=== PATIENT | female | born 1980 | race American Indian/Alaskan Native ===

== ENCOUNTER 2019-01-19 08:33 | Emergency (ER) | payer SELFPAY ==
[2019-01-19 09:07] VITALS: BP 121/80
[2019-01-19 09:31] LABS: Hematocrit 37.5 % (30.3-42.9); Hemoglobin 12.3 gm/dl (10.1-14.3); Mean Corpuscular HGB Conc 33 % (30-34); Mean Corpuscular Volume 89 fl (79-97); Platelet Count 321 K/mm3 (140-440); Red Blood Count 4.21 M/mm3 (3.65-5.03); Red Cell Distribution Width 12.8 % (13.2-15.2)
[2019-01-19] MEDS ORDERED: SUCRALFATE 1 GM/10 ML ORAL LIQD PO ONE (09:40)
[2019-01-19] MEDS ORDERED: ONDANSETRON 2 MG/2.5 ML ORAL LIQD PO ONE (09:40)
[2019-01-19] MEDS ORDERED: FAMOTIDINE 20 MG TAB PO ONE (09:40)
--- NOTE | 2019-01-19 09:41 | Emergency Department Report ---
ED N/V/D HPI - General Chief complaint: Abdominal Pain Stated complaint: STONACH VIRUS Time Seen by Provider: 01/19/19 09:19 Source: patient, RN notes reviewed Mode of arrival: Ambulatory Limitations: No Limitations - History of Present Illness Initial comments: This is a pleasant 38-year-old female. This patient is not known to this provider previously. She states that she is not . She indicates that she does not have a local primary care doctor. Surgical history is significant for left-sided ovarian removal. She presents to the ER with a complaint of food poisoning. She reports that she went to [employer] yesterday, and she believes that she had some bad food. She describes 6-7 episodes of yellow greenish nausea and vomiting, in 4-5 episodes of green yellow watery diarrhea. She has mild diffuse abdominal cramping after starting to throw up. Prior to initiation of vomiting, she was not having any pain. She denies urinary symptoms. Her symptoms are intermittent, cramping, decreased with rest, increase with palpation, and reportedly attempting to eat and or drink. MD complaint: nausea, vomiting, diarrhea, abdominal pain -: Gradual Description of Vomiting: other Description of Diarrhea: other Associated Abdominal Pain: Yes Location: diffuse Radiation: none Severity: mild Quality: cramping Consistency: intermittent Improves with: other Worsens with: other Context: possible food poisoning - Related Data Previous Rx's Medication Instructions Recorded Last Taken Type Ondansetron [Zofran Odt] 4 mg PO Q6H #14 tab.rapdis 05/05/14 Unknown Rx Acetaminophen [Non-Aspirin Extra 500 mg PO Q6HR PRN #30 tablet 01/19/19 Unknown Rx Strength] Famotidine [Pepcid] 20 mg PO BID #10 tablet 01/19/19 Unknown Rx Mikayla Root [Mikayla] 250 mg PO QID PRN #30 capsule 01/19/19 Unknown Rx Ondansetron [Zofran Odt] 4 mg PO Q8HR PRN #20 tab.rapdis 01/19/19 Unknown Rx Allergies Allergy/AdvReac Type Severity Reaction Status Date / Time No Known Allergies Allergy Unverified 05/05/14 02:58 ED Review of Systems ROS: Stated complaint: STONACH VIRUS Other details as noted in HPI Constitutional: denies: fever Eyes: denies: eye discharge ENT: denies: congestion Respiratory: denies: wheezing Cardiovascular: denies: chest pain, syncope Gastrointestinal: abdominal pain, nausea, vomiting, diarrhea Genitourinary: denies: dysuria Musculoskeletal: denies: back pain, myalgia Skin: denies: lesions Neurological: weakness Hematological/Lymphatic: denies: easy bleeding ED Past Medical Hx - Past Medical History Previous Medical History?: No - Surgical History Past Surgical History?: Yes Additional Surgical History: left ovary removed - Social History Smoking Status: Never Smoker Substance Use Type: None - Medications Home Medications: Home Medications Medication Instructions Recorded Confirmed Last Taken Type Ondansetron [Zofran Odt] 4 mg PO Q6H #14 tab.rapdis 05/05/14 Unknown Rx Acetaminophen [Non-Aspirin Extra 500 mg PO Q6HR PRN #30 tablet 01/19/19 Unknown Rx Strength] Famotidine [Pepcid] 20 mg PO BID #10 tablet 01/19/19 Unknown Rx Mikayal Root [Mikayla] 250 mg PO QID PRN #30 capsule 01/19/19 Unknown Rx Ondansetron [Zofran Odt] 4 mg PO Q8HR PRN #20 tab.rapdis 01/19/19 Unknown Rx ED Physical Exam - General Limitations: No Limitations General appearance: alert, in no apparent distress - Head Head exam: Present: atraumatic, normocephalic - Eye Eye exam: Present: normal appearance, EOMI. Absent: nystagmus - ENT ENT exam: Present: normal exam, normal orophraynx, mucous membranes moist, normal external ear exam - Neck Neck exam: Present: normal inspection, full ROM. Absent: tenderness, meningismus - Respiratory Respiratory exam: Present: normal lung sounds bilaterally. Absent: respiratory distress - Cardiovascular Cardiovascular Exam: Present: regular rate, normal rhythm, normal heart sounds. Absent: bradycardia, tachycardia, irregular rhythm, systolic murmur, diastolic murmur, rubs, gallop - GI/Abdominal GI/Abdominal exam: Present: soft, normal bowel sounds. Absent: distended, tenderness, guarding, rebound, rigid, pulsatile mass - Extremities Exam Extremities exam: Present: normal inspection, full ROM, other (2+ pulses noted in the bilateral upper, lower extremities. There is no long bone tenderness. Musculoskeletal compartments are soft. The pelvis is stable.). Absent: pedal edema, joint swelling, calf tenderness - Back Exam Back exam: Present: normal inspection, full ROM. Absent: tenderness, CVA tenderness (R), CVA tenderness (L), paraspinal tenderness, vertebral tenderness - Neurological Exam Neurological exam: Present: alert, normal gait, other (there is no facial droop. The tongue is midline. Extraocular movements are intact bilaterally. Patient speaking in full complete sentences. Shoulder shrug is intact bilaterally. Hearing is grossly intact bilaterally. Visual acuity intact to finger counting and color perception at a close distance. 5/5 strength 4 extremities. Sensation intact to light touch in 4 extremities.). Absent: motor sensory deficit - Psychiatric Psychiatric exam: Present: normal affect, normal mood - Skin Skin exam: Present: warm, dry, intact, normal color. Absent: rash ED Course Vital Signs 01/19/19 09:05 Temperature 98.5 F Pulse Rate 70 Respiratory 17 Rate Blood Pressure 121/80 O2 Sat by Pulse 100 Oximetry - Reevaluation(s) Reevaluation #1: 01/19/19 11:15 The patient is reassessed. She feels improved. She is tolerating liquid feeds. No active vomiting. Belly remained soft and nontender. She is suitable to be discharged. We discussed expectant management and return precautions. ED Medical Decision Making - Lab Data Result diagrams: 01/19/19 08:54 01/19/19 08:54 Vital Signs 01/19/19 09:05 Temperature 98.5 F Pulse Rate 70 Respiratory 17 Rate Blood Pressure 121/80 O2 Sat by Pulse 100 Oximetry - Medical Decision Making Differential diagnosis, including but not limited to: Gastroenteritis, food poisoning, nausea, vomiting, diarrhea Assessment and plan: 38-year-old female with complaint of nausea, vomiting and diarrhea. She is afebrile with reassuring vital signs. She is currently tolerating oral feeds at this time Patient was given oral medications which she tolerated without difficulty. Her abdomen is soft and benign, without rebound, guarding, or peritoneal signs. Laboratory studies do not demonstrate any emergent metabolic derangement. Her exam is not consistent with an acute surgical emergency. This is most likely gastroenteritis, and can be treated supportively and symptomatically. The patient indicates that she is reliable to follow-up and return if symptoms worsen. Critical care attestation.: If time is entered above; I have spent that time in minutes in the direct care of this critically ill patient, excluding procedure time. ED Disposition Clinical Impression: Nausea vomiting and diarrhea Disposition: DC-01 TO HOME OR SELFCARE Is pt being admited?: No Does the pt Need Aspirin: No Condition: Stable Additional Instructions: Symptoms likely coming from gastroenteritis, which typically resolves on its own, and is typically not dangerous or life-threatening. Advance diet as tolerated, drink plenty of fluids, such as water, Pedialyte, and advance diet with bread rice, apples, toast, light food with the patient is physically able to. Wash hands with soap and water before eating, and after using the bathroom, and follow up with the primary care doctor within the next 2 weeks. Return to emergency room right away with projectile vomiting, change in mental status, confusion, inability to tolerate liquid feeds, new, worsened or different symptoms not present on initial emergency room evaluation. Prescriptions: Mikayla Root [Mikayla] 250 mg PO QID PRN #30 capsule PRN Reason: Nausea Acetaminophen [Non-Aspirin Extra Strength] 500 mg PO Q6HR PRN #30 tablet PRN Reason: Pain , Severe (7-10) Famotidine [Pepcid] 20 mg PO BID #10 tablet Ondansetron [Zofran Odt] 4 mg PO Q8HR PRN #20 tab.rapdis PRN Reason: Nausea Referrals: [facility] [Provider Group] - 3-5 Days
[2019-01-19 09:46] LABS: Alanine Aminotransferase 11 units/L (7-56); Albumin 4.6 g/dL (3.9-5); BUN/Creatinine Ratio 15; Blood Urea Nitrogen 12 mg/dL (7-17); Calcium 9.3 mg/dL (8.4-10.2); Hemolysis Index 8
[2019-01-19 10:40] LABS: Mucus,Urine FEW /HPF; RBC,Urine < 1.0 /HPF (0.0-6.0); WBC,Urine < 1.0 /HPF (0.0-6.0)
[2019-01-19 10:55] LABS: Bilirubin,Urine NEG (Negative); Blood,Urine MOD (Negative); Color,Urine Colorless (Yellow); Urobilinogen,Urine < 2.0 mg/dL (<2.0)
== END 2019-01-19 12:38 | disposition home or self-care (01) ==
LOC: ED 08:33
DX: R11.2 Nausea with vomiting, unspecified (principal); R19.7 Diarrhea, unspecified; R10.9 Unspecified abdominal pain
CPT/HCPCS: 36415; 80053; 81001; 82550; 83690; 83735; 84702; 85027; 99283; Q0162

== ENCOUNTER 2019-04-14 15:06 | Emergency (ER) | payer SELFPAY ==
[2019-04-14 16:41] VITALS: BP 123/71
--- NOTE | 2019-04-14 16:42 | Emergency Department Report ---
Chief Complaint: Fever Stated Complaint: FEVER,RUNNING JULIO CÉSAR - HPI History of Present Illness: 38 yo F, no PMH, presents to ED w/ cough, sore throat, LAW[place], body aches, fever x 2 days. Taking OTC meds. Denies shortness of breath, chest pain, vomiting. - ROS Review of Systems: Comment: All other systems reviewed and negative Constitutional: reports fever Respiratory: reports cough Cardiovascular: denies chest pain Gastrointestinal: denies: vomiting, diarrhea Musculoskeletal: reports myalgias - Exam Physical Exam: - General Limitations: No Limitations General appearance: alert, in no apparent distress - Head Head exam: Present: atraumatic, normocephalic - Eye Eye exam: Present: normal appearance, EOMI - ENT ENT exam: Present: mucous membranes moist - Neck Neck exam: Present: normal inspection - Respiratory Respiratory exam: Present: normal lung sounds bilaterally. Absent: respiratory distress - Cardiovascular Cardiovascular Exam: Present: regular rate, normal rhythm - GI/Abdominal GI/Abdominal exam: Present: soft. Absent: distended, tenderness - Extremities Exam Extremities exam: Present: normal inspection - Neurological Exam Neurological exam: Present: alert, oriented X3 - Psychiatric Psychiatric exam: Present: normal affect, normal mood - Skin Skin exam: Present: warm, dry, intact, normal color MSE screening note: Focused history and physical exam performed. Due to findings the following was ordered: n/a 38 yo F w/ viral illnes, URI. Vitals are normal. Exam unremarkable. Pt is is no distress, appears comfortable. Exam unremarkable. No emergent medical condition present at this time. Outpt f/u advised, resourced given. Return precautions given. ED Medical Decision Making - Medical Decision Making 38 yo F w/ viral illnes, URI. Vitals are normal. Exam unremarkable. Pt is is no distress, appears comfortable. Exam unremarkable. No emergent medical cond ition present at this time. Outpt f/u advised, resourced given. Return precautions given. ED Disposition for [facility] [place] Clinical Impression: URI (upper respiratory infection) Disposition: MED SCREENING EXAM-LEFT Is pt being admited?: No Condition: Stable Instructions: Upper Respiratory Infection (ED) Referrals: TOBIN SCOTT MD [Staff Physician] - 3-5 Days [facility] [Provider Group] - 3-5 Days [facility] [Outside] - 3-5 Days Forms: Work/School Release Form(ED) Time of Disposition: 16:42
== END 2019-04-14 18:00 | disposition left against medical advice (07) ==
LOC: ED 15:06
DX: J06.9 Acute upper respiratory infection, unspecified (principal)
CPT/HCPCS: 99282

== ENCOUNTER 2019-11-02 09:24 | Emergency (ER) | payer SELFPAY ==
[2019-11-02 09:54] VITALS: BP 109/77
--- NOTE | 2019-11-02 10:34 | Emergency Department Report ---
Chief Complaint: Eye Problems Stated Complaint: EYE PAIN Time Seen by Provider: 11/02/19 10:30 - HPI History of Present Illness: pt is a 39 yo female who presents to the ED with complaints of bilateral eye irritation and itching that began yesterday. she states she noticed a small amount of crusting when she first woke up but has not seen any drainage from the eye since. she denies any increased watering. she denies getting anything into the eye. she is currently wearing glasses and does not have her contacts in. she denies any vision changes. she denies any sick contacts. no allergies to meds. vss on exam: No conjunctival injection bilaterally, no periorbital edema or erythema or tenderness palpation, extraocular movements intact, PERRLA, no drainage, no crusting, no purulence, no signs of hordeolum or chalazion, no scaling of the eyelashes No signs of bacterial conjunctivitis or viral conjunctivitis, no signs of hordeolum or chalazion, no signs of blepharitis, no signs of preseptal or orbital cellulitis, no signs of dacryocystitis Patient denies getting anything into the eye or foreign body sensation advised pt please use zatidor ehe drops over the counter. may use cold compresses. follow up with a primary care doctor. follow up with an eye doctor. no signs of bacterial conjunctivitis today. return to the emergency room for any new or worsening symptoms. Discussed strict return precautions with patient Medical screening examination performed and there is no threat to life or limb at this time - Exam Vital Signs: Vital Signs 11/02/19 09:47 Temperature 98.4 F Pulse Rate 108 H Respiratory 18 Rate Blood Pressure 109/77 O2 Sat by Pulse 100 Oximetry MSE screening note: Focused history and physical exam performed. ED Disposition for [facility] Clinical Impression: Itchy eyes Disposition: Z-07 MED SCREENING EXAM-LEFT Is pt being admited?: No Does the pt Need Aspirin: No Condition: Stable Additional Instructions: please use zatidor ehe drops over the counter. may use cold compresses. follow up with a primary care doctor. follow up with an eye doctor. no signs of bacterial conjunctivitis today. return to the emergency room for any new or worsening symptoms. Referrals: [facility] [Provider Group] - 2-3 Days Forms: Work/School Release Form(ED) Time of Disposition: 10:34 Print Language: DJIBOUTIAN
== END 2019-11-02 10:48 | disposition left against medical advice (07) ==
LOC: ED 09:24
DX: H57.10 Ocular pain, unspecified eye (principal); Z53.21 Procedure and treatment not carried out due to patient leaving prior to being seen by health care provider